=== PATIENT | male | born 1960 | race African-American/Black ===

== ENCOUNTER 2017-04-03 08:17 | Inpatient (IN) | payer MEDICARE ==
[~2017-04-03] VITALS: Ht 182.9 cm; Wt 80.7 kg
--- NOTE | 2017-04-03 08:18 | NUR ---
PT BIBA TO BED 6 AT THIS TIME.
[2017-04-03 08:24] VITALS: BP 144/98
[2017-04-03] MEDS ORDERED: MULTIVITAMIN-12 10 ML, THIAMINE 100 MG, MAGNESIUM SULFATE 50% 2,000 MG, FOLIC ACID 5 MG... IV ONE ×5 (08:25)
--- NOTE | 2017-04-03 08:25 | NUR ---
PT BIBA FOR EVALUATION OF ALOC SECONDARY TO ETOH. HX SEIZURES. PT STATES HE TAKES PHENOBARBITOL AND DILANTIN, BUT UNABLE TO GIVE DOSAGES OR DATES LAST TAKEN. SKIN IS PINK/WARM/DRY; LUNGS CLEAR BL; HR EVEN AND REGULAR; PT MINIMAL RESPONSE TO VERBAL STIMULI, RESPONSE TO PAINFUL STIMULI;NO C/O PAIN AT THIS TIME; VSS; PATIENT POSITIONED FOR COMFORT; HOB ELEVATED; BEDRAILS UP X2; BED DOWN. ER MD MADE AWARE OF PT STATUS.
[2017-04-03 08:46] LABS: BASOPHILS # (AUTO) 0.1 K/uL (0.00-0.22); BASOPHILS % (AUTO) 2.3 % (0.0-2.0); EOSINOPHILS # (AUTO) 0.1 K/uL (0-0.4); EOSINOPHILS % (AUTO) 1.5 % (0.0-4.0); HEMOGLOBIN 13.8 g/dL (12.0-18.0); LYMPHOCYTES # (AUTO) 0.8 K/uL (2.0-11.5); MEAN CORPUSCULAR HEMOGLOBIN 28 pg (27-31); MEAN CORPUSCULAR HGB CONC 33 g/dL (33-37); MEAN CORPUSCULAR VOLUME 85 fL (80-94); MONOCYTES # (AUTO) 0.7 K/uL (0.8-1.0); NEUTROPHILS # (AUTO) 2.8 K/uL (1.8-7.7); NEUTROPHILS % (AUTO) 63.2 % (42.2-75.2); PLATELET COUNT (AUTO) 183 K/uL (140-450); RED BLOOD CELL COUNT(AUTO) 4.93 MIL/uL (4.20-6.10); RED CELL DISTRIBUTION WIDTH 14.6 % (11.6-13.7); WHITE BLOOD COUNT (AUTO) 4.5 K/uL (4.8-10.8)
[2017-04-03 08:58] LABS: ALBUMIN 3.7 g/dL (3.4-5.0); ANION GAP 11.4 (8-16); ASPARTATE AMINOTRANSFERASE 55 U/L (15-37); CARBON DIOXIDE 31.1 mmol/L (21-32); CHLORIDE 103 mmol/L (98-107); CREATININE 1.3 mg/dL (0.7-1.3); GFR ARICAN-AMERICAN 74 mL/min (>90); GLUCOSE 93 mg/dL (74-106); PHENOBARBITAL 31 ug/ml (15-40); PHENYTOIN (DILANTIN) 1.5 ug/ml (10.0-20.0); POTASSIUM 3.5 mmol/L (3.5-5.1); SODIUM SERUM 142 mmol/L (136-145); TOTAL BILIRUBIN 0.3 mg/dL (0.0-1.0)
[2017-04-03 09:04] LABS: ACETAMINOPHEN < 0.5 ug/ml (10-30); SALICYLATE < 2.8 mg/dL (2.8-20.0)
[2017-04-03 09:15] LABS: UREA NITROGEN, BLOOD 15 mg/dL (7-18)
--- NOTE | 2017-04-03 09:16 | NUR ---
PT TAKEN TO CT VIA GURMARLEE BY HIGH LIFT OPERATOR
[2017-04-03] MEDS ORDERED: THIAMINE 200 MG/2 ML VIAL ONE (09:18)
[2017-04-03] MEDS ORDERED: FOLIC ACID 5 MG/ML SYR ONE (09:18)
[2017-04-03] MEDS ORDERED: MAGNESIUM SULFATE 50% 1000 MG/2 ML VIAL IV ONE (09:18)
[2017-04-03] MEDS ORDERED: PHENYTOIN 1,000 MG in NACL 0.9% 100 ML IV ONE (09:40)
--- NOTE | 2017-04-03 10:03 | NUR ---
PT RESTING COMFORTABLY AT THIS TIME, [place] [employer] AT BEDSIDE, WILL CONTINUE TO MONITOR
--- NOTE | 2017-04-03 10:08 | NUR ---
FLIGHT INFORMATION EXPEDITER GloriaMuna DALEYMAYRA WANTS TO BED CALLED [phone] WHEN PATIENT IS DISCHARED. HE WILL BE PICKING UP PATIENT. DR. SHANIA GAMEZ AND LLOYD BOLTON AWARE.
[2017-04-03 10:56] LABS: BARBITURATE, URINE POS. ng/ml (NEG <=200); BENZODIAZEPINE, URINE NEG. ng/mL (NEG <=200); CANNABINOID, URINE NEG. ng/mL (NEG <=50); COCAINE, URINE POS. ng/mL (NEG <=300); OPIATE, URINE NEG. ng/mL (NEG <=2000); PHENCYCLIDINE SCREEN,URINE NEG. ng/mL (NEG <=25)
[2017-04-03] MEDS ORDERED: NACL 0.9% 1,000 ML IV SCH (11:18)
[2017-04-03] MEDS ORDERED: ONDANSETRON 4 MG/2 ML VIAL IM/IVP PRN (11:20)
[2017-04-03] MEDS ORDERED: HYDROcodone/APAP 7.5/325 MG 1 TAB PO PRN (11:20)
[2017-04-03] MEDS ORDERED: MORPHINE SULFATE 2 MG/ML SYR IVP PRN (11:20)
[2017-04-03] MEDS ORDERED: DOCUSATE SODIUM 100 MG GELCAP PO PRN (11:20)
[2017-04-03] MEDS ORDERED: ACETAMINOPHEN 325 MG TAB PO PRN (11:20)
[2017-04-03] MEDS ORDERED: LORazepam 1 MG TAB PO PRN (11:40)
[2017-04-03] MEDS ORDERED: LORazepam 2 MG/ML VIAL IVP PRN (11:40)
[2017-04-03] MEDS ORDERED: PHENobarbital 30 MG TAB PO SCH (11:45)
--- NOTE | 2017-04-03 12:00 | NUR ---
Patient will be admitted to care of DR FABIAN. Admited to ICU. Will go to room ICU2. Belongings list completed. Report to CHE GOMEZ.
[2017-04-03 12:15] LABS: ANION GAP 11.8 (8-16); CARBON DIOXIDE 30.8 mmol/L (21-32); CREATININE 1.1 mg/dL (0.7-1.3); POTASSIUM 3.6 mmol/L (3.5-5.1)
[2017-04-03 12:28] LABS: CHOL/HDL RATIO 2.9 (1-4.5); FREE T4 (FREE THYROXINE) 0.73 ng/dL (0.76-1.46); MAGNESIUM 2.2 mg/dL (1.8-2.4); PHOSPHORUS 3.5 mg/dL (2.5-4.9); THYROID STIMULATING HORMONE 0.9 uIU/mL (0.34-3.74)
--- NOTE | 2017-04-03 12:29 | NUR ---
ADMITTED FROM ER TELE CONVENIENCE THIS 57 YR. OLD MALE PER [facility] ACCPD BY ER NURSES DUE TO ALOC. UNABLE TO OBTAIN INFO FROM PT. IV BANANA BAG INFUSING AT 250 ML/HR VIA LEFT AC PERIPHERAL IV SITE G 20. SITE CLEAR. 02 AT 2 L/MIN/NC. MAINTENANCE ASSISTANT SHOWS SB HR 50 - 55/ MIN. WOKE UP BRIEFLY, ANSWERED SIMPLE QUESTIONS, OBEYED SIMPLE COMMANDS WHEN TRANSFERRED FROM [facility] TO BED. C/O OF FEELING COLD. BLANKETS APPLIED. WANTED TO VOID. URINAL PLACED BUT UNABLE TO VOID AT THIS TIME. NO BLADDER DISTENTION NOTED. ( STRAIGHT CATH INSERTED IN ER). SKIN DRY AND INTACT.
[2017-04-03 12:30] VITALS: BP 142/94
[2017-04-03 12:53] LABS: APPEARANCE,URINE CLEAR (CLEAR); BILIRUBIN,URINE NEGATIVE (NEGATIVE); BLOOD, URINE 2+ (NEGATIVE); COLOR,URINE YELLOW (YELLOW); LEUKOCYTE ESTERASE ,URINE NEGATIVE (NEGATIVE); NITRITE, URINE NEGATIVE (NEGATIVE); PH,URINE 6.5 (5.0-9.0); UGLUCOSE NEGATIVE (NEGATIVE)
[2017-04-03] MEDS: PHENobarbital 30 MG TAB PO SCH ×2 (13:00→17:17)
[2017-04-03] MEDS: LORazepam 1 MG TAB PO SCH ×2 (13:00→21:00)
--- NOTE | 2017-04-03 13:00 | NUR ---
PO MEDS NOT GIVEN. PT. IS LETHARGIC.
[2017-04-03 13:14] LABS: RBC,URINE 20-30 /HPF (0-5); WBC,URINE NONE SEEN /HPF (0-5)
--- NOTE | 2017-04-03 13:53 | NUR ---
BANANA BAG FINISHED. 0.9NS AT 60 ML/HR STARTED.
--- NOTE | 2017-04-03 14:00 | NUR ---
REMAINS IN SINUS BRADYCARDIA HR 46 TO 55/MIN. BP STABLE PT. SLEEPING. DR. LAY AWARE.
--- NOTE | 2017-04-03 14:05 | NUR ---
DR. LAY ALSO NOTIFIED PO MEDS NOT STARTED YET. PT. LETHARGIC
--- NOTE | 2017-04-03 14:20 | NUR ---
ECHOCARDIOGRAM DONE AT BEDSIDE.
[2017-04-03] MEDS: FOLIC ACID 1 MG TAB PO SCH (14:37)
[2017-04-03] MEDS: THIAMINE 100 MG TAB PO SCH (14:39)
--- NOTE | 2017-04-03 15:20 | NUR ---
ADMINISTERED PO MEDS. PT HAD NO DIFFICULTY SWALLOWING PILLS.
--- NOTE | 2017-04-03 15:30 | NUR ---
AWAKE,ALERT, ORIENTED. DE [place] WELL. ANSWERS QUESTIONS APPROPRIATELY. SPEECH CLEAR. USED THE URINAL VOIDED 650 ML MERT URINE WITHOUT DIFF.
[2017-04-03 16:00] VITALS: BP 142/87
[2017-04-03] MEDS: PHENYTOIN 100 MG CAPER PO SCH (17:18)
--- NOTE | 2017-04-03 18:23 | NUR ---
NO SEIZURE ACTIVITY THROUGHOUT THE SHIFT.
--- NOTE | 2017-04-03 18:40 | NUR ---
LEFT AC IV SITE SWOLLEN. DC'D ATTEMPTED TO START IV X 6 TIMES. UNABLE TO SUCCESSFULLY START IV VEIN INTEGRITY IS COMPROMISED UPON FLUSHING.
--- NOTE | 2017-04-03 18:55 | NUR ---
DR. GALAN AT BEDSIDE. NOTIFIED OF DIFF. IN STARTING IV. ATTEMPTED TO START IV ON LOWER EXT. X 3. UNSUCCESSFUL.
--- NOTE | 2017-04-03 19:30 | NUR ---
DR. GALAN NOTIFIED OF FAILED IV STARTS. WILL DC IV ORDER.
--- NOTE | 2017-04-03 19:49 | NUR ---
REPORT GIVEN TO SHEFALI BOLTON.
--- NOTE | 2017-04-03 19:49 | NUR ---
REPORT RECEIVED FROM DAY NURSE CARLOS - RN WITH RESUME CARE, PT'S ASLEEP.MO SEIZURE NOTED
[2017-04-03 20:00] VITALS: BP 101/59
--- NOTE | 2017-04-03 20:00 | NUR ---
PT'S ASLEEP, NO SEIZURE NOTED
--- NOTE | 2017-04-03 22:00 | NUR ---
PT'S ASLEEP. NO SEIZURE NOTED.
[2017-04-04] VITALS (7 sets, daily range): BP systolic 109–132; BP diastolic 63–87
--- NOTE | 2017-04-04 | NUR ---
PT'S ASLEEP. NO SEIZURE NOTED.
[2017-04-04] MEDS: PHENYTOIN 100 MG CAPER PO SCH ×5 (00:28→23:54)
--- NOTE | 2017-04-04 02:00 | NUR ---
NO SEIZURE , NO PAIN , NO STRESS . ASLEEP WELL.
--- NOTE | 2017-04-04 04:00 | NUR ---
PT'S ASLEEP, VOIDED USED URINAL WITH TOLERATING WELL
[2017-04-04 04:58] LABS: HEMATOCRIT 42.7 % (36-52); MEAN CORPUSCULAR HEMOGLOBIN 28 pg (27-31); MEAN CORPUSCULAR HGB CONC 33 g/dL (33-37); MEAN CORPUSCULAR VOLUME 85 fL (80-94); PLATELET COUNT (AUTO) 149 K/uL (140-450); RED BLOOD CELL COUNT(AUTO) 5.01 MIL/uL (4.20-6.10); RED CELL DISTRIBUTION WIDTH 14.6 % (11.6-13.7); WHITE BLOOD COUNT (AUTO) 3.2 K/uL (4.8-10.8)
[2017-04-04] MEDS: LORazepam 1 MG TAB PO SCH ×3 (05:00→20:56)
[2017-04-04 05:12] LABS: ANION GAP 10.6 (8-16); CARBON DIOXIDE 28.3 mmol/L (21-32); POTASSIUM 3.9 mmol/L (3.5-5.1)
[2017-04-04 05:17] LABS: MAGNESIUM 1.9 mg/dL (1.8-2.4); PHOSPHORUS 3.3 mg/dL (2.5-4.9)
--- NOTE | 2017-04-04 06:00 | NUR ---
PT'S ASLEEP. DUE MEDICATION GIVEN MD ORDER.
[2017-04-04 06:01] LABS: PHENYTOIN (DILANTIN) 8.3 ug/ml (10.0-20.0)
--- NOTE | 2017-04-04 06:50 | NUR ---
REPORT CALLED TO LACY - CHE WITH RESUME CARE. PT'S AAO X 4 WITH WELL RESPOND .
--- NOTE | 2017-04-04 07:00 | NUR ---
RECEIVED REPORT, PATIENT TO BE TRANSFERRED TO UNIT, WILL ENDORSE TO GUERA MARQUEZ
--- NOTE | 2017-04-04 07:05 | NUR ---
RECEIVED REPORT FROM CHE HOUSE. PT IS RESTING IN BED, A/OX4, AMBULATORY, SKIN IS INTACT, PT HAS NO IV ACCESS, PER. LACY, SHE WAS TOLD BY ICU NURSE DURING REPORT THAT DR. GALAN IS AWARE AND WILL DC IV ORDER. PT HAS NO S/S OF RESPIRATORY DISTRESS OR DISCOMFORT NOTED, DISCUSSED PLAN OF CARE WITH PT, PT VERBALIZED UNDERSTANDING, SAFETY/FALL/SEIZURE PRECAUTIONS ARE IN PLACE, CALL LIGHT IS WITHIN REACH, WILL CONTINUE TO MONITOR.
[2017-04-04 07:27] LABS: EOSINOPHILS % (MANUAL) 3 % (0-4); LYMPHOCYTES % (MANUAL) 24 % (20-46); MONOCYTES % (MANUAL) 9 % (5-12)
--- NOTE | 2017-04-04 08:37 | NUR ---
PATIENT HAS BEEN SCREENED AND CATEGORIZED MODERATE NUTRITION RISK. PATIENT WILL BE SEEN WITHIN 3-5 DAYS OF ADMISSION. 04/05/17-04/07/[address]
[2017-04-04] MEDS ORDERED: PHENYTOIN 100 MG CAPER PO SCH (09:00)
[2017-04-04] MEDS: FOLIC ACID 1 MG TAB PO SCH (09:05)
[2017-04-04] MEDS: THIAMINE 100 MG TAB PO SCH (09:05)
[2017-04-04] MEDS: PHENobarbital 30 MG TAB PO SCH ×3 (09:05→17:15)
--- NOTE | 2017-04-04 09:05 | NUR ---
DUE MEDICATIONS GIVEN, PT TOLERATED WELL, CALL LIGHT WITHIN REACH, WILL CONTINUE TO MONITOR.
[2017-04-04] MEDS: ATORVASTATIN 20 MG TAB PO SCH (09:06)
--- NOTE | 2017-04-04 11:12 | NUR ---
PATIENT SLEEPING IN BED AT THIS TIME, CALL LIGHT IS WITHIN REACH.
[2017-04-04 11:16] LABS: T4 (THYROXINE) 4.2 ug/dL (4.5 - 12.0)
[2017-04-04 11:20] LABS: TRANSFERRIN 190 mg/dL (200 - 370)
--- NOTE | 2017-04-04 11:29 | NUR ---
CM NOTE INITIAL REVIEW FAXED TO [facility] (FAX# [phone], C: [phone], OPT. 1, 3, 7) AND [facility]LY [facility], [facility]–1983 (FAX# [phone], C: [phone], OPT. 2)
--- NOTE | 2017-04-04 13:15 | NUR ---
PATIENT IS SLEEPING IN BED, NO S/S OF RESPIRATORY DISTRESS OR DISCOMFORT NOTED, CALL LIGHT WITHIN REACH.
--- NOTE | 2017-04-04 15:30 | NUR ---
PATIENT IS SLEEPING IN BED, CALL LIGHT WITHIN REACH.
--- NOTE | 2017-04-04 15:53 | NUR ---
CITY LIBRARY DIRECTOR IS AT PATIENT'S BEDSIDE AT THIS TIME.
--- NOTE | 2017-04-04 17:14 | NUR ---
PATIENT SLEEPING IN BED AT THIS TIME, CALL LIGHT WITHIN REACH.
--- NOTE | 2017-04-04 19:08 | NUR ---
ENDORSED PT TO CROOK OPERATOR NURSE FOR CONTINUITY OF CARE, PT STABLE AT THIS TIME.
--- NOTE | 2017-04-04 19:09 | NUR ---
RECEIVED REPORT FROM AM NURSE. PT IS RESTING IN BED, AOX4. PT HAS NO IV ACCESS PER AM NURSE AND WITH DR. GALAN'S ORDERS OF NO NEED FOR IV ACCESS. HAS NO S/S OF DISTRESS OR DISCOMFORT NOTED. WILL CONTINUE TO MONITOR. ALL NEEDS ATTENDED. CALL LIGHT WITHIN REACH. SAFETY/SEIZURE CHECKS IN PLACE.
--- NOTE | 2017-04-04 20:56 | NUR ---
DUE MEDS GIVEN, TOLERATED WELL BY THE PATIENT. WILL CONTINUE TO MONITOR FOR ANY CHANGES.
--- NOTE | 2017-04-04 23:54 | NUR ---
VITALS STABLE, NO S/S OF DISTRESS. NO COMPLAINTS OF PAIN. DUE MEDS GIVEN, WELL TOLERATED BY PATIENT. WILL CONTINUE TO MONITOR. ALL NEEDS ATTENDED. CALL LIGHT WITHIN REACH. SAFETY CHECKS IN PLACE.
[2017-04-05] VITALS: BP 109/69
--- NOTE | 2017-04-05 02:15 | NUR ---
MADE ROUNDS, PATIENT ASLEEP. NO S/S OF DISTRESS. WILL CONTINUE TO MONITOR.
[2017-04-05 04:00] VITALS: BP 125/85
--- NOTE | 2017-04-05 04:00 | NUR ---
VITAL SIGNS STABLE. NO S/S OF DISTRESS. NO COMPLAINTS OF PAIN. WILL CONTINUE TO MONITOR.
[2017-04-05] MEDS: LORazepam 1 MG TAB PO SCH ×2 (05:09→12:00)
[2017-04-05] MEDS: PHENYTOIN 100 MG CAPER PO SCH ×2 (05:09→11:59)
--- NOTE | 2017-04-05 05:10 | NUR ---
DUE MEDS GIVEN, WELL TOLERATED BY PATIENT. WILL CONTINUE TO MONITOR.
[2017-04-05 06:41] LABS: MEAN CORPUSCULAR HEMOGLOBIN 28 pg (27-31); MEAN CORPUSCULAR HGB CONC 33 g/dL (33-37); MEAN CORPUSCULAR VOLUME 85 fL (80-94); PLATELET COUNT (AUTO) 172 K/uL (140-450); RED BLOOD CELL COUNT(AUTO) 5.43 MIL/uL (4.20-6.10); RED CELL DISTRIBUTION WIDTH 14.8 % (11.6-13.7); WHITE BLOOD COUNT (AUTO) 2.6 K/uL (4.8-10.8)
[2017-04-05 06:48] LABS: ANION GAP 9.4 (8-16); CARBON DIOXIDE 30.5 mmol/L (21-32); CREATININE 1.2 mg/dL (0.7-1.3); POTASSIUM 3.9 mmol/L (3.5-5.1)
[2017-04-05 06:52] LABS: MAGNESIUM 1.9 mg/dL (1.8-2.4); PHOSPHORUS 2.9 mg/dL (2.5-4.9)
[2017-04-05 07:06] LABS: PHENYTOIN (DILANTIN) 8.1 ug/ml (10.0-20.0)
--- NOTE | 2017-04-05 07:10 | NUR ---
ENDORSED TO AM SHIFT NURSE FOR CONTINUITY OF CARE, IN STABLE CONDITION
--- NOTE | 2017-04-05 07:15 | NUR ---
RECEIVED REPORT FROM POLICY ADVISER NURSE AT PT BEDSIDE. PT IS AAOX4, ON ROOM AIR, SKIN INTACT, NO IV ACCESS. SEIZURE PRECAUTIONS IN PLACE. 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 DISCUSSED PLAN OF CARE WITH PT, PT VERBALIZED UNDERSTANDING. PT IS STABLE, WITHOUT SIGNS OF DISTRESS. BED IN LOW POSITION, CALL LIGHT WITHIN REACH. WILL CONTINUE TO MONITOR.
[2017-04-05 07:37] VITALS: BP 126/82
[2017-04-05 07:59] LABS: EOSINOPHILS % (MANUAL) 1 % (0-4); LYMPHOCYTES % (MANUAL) 18 % (20-46); MONOCYTES % (MANUAL) 13 % (5-12)
[2017-04-05] MEDS: ATORVASTATIN 20 MG TAB PO SCH (08:32)
[2017-04-05] MEDS: FOLIC ACID 1 MG TAB PO SCH (08:33)
[2017-04-05] MEDS: THIAMINE 100 MG TAB PO SCH (08:33)
[2017-04-05] MEDS: PHENobarbital 30 MG TAB PO SCH ×2 (08:33→11:59)
--- NOTE | 2017-04-05 08:40 | NUR ---
ADMINISTERED SCHEDULED MEDICATIONS. PT TOLERATED WELL. PT STABLE, NO SIGNS OF DISTRESS NOTED. BED IN LOW POSITION, CALL LIGHT WITHIN REACH. WILL CONTINUE TO MONITOR.
[2017-04-05] MEDS ORDERED: PHEN-1438 PO (10:24)
[2017-04-05] MEDS ORDERED: PHEN100C4 PO (10:24)
[2017-04-05] MEDS ORDERED: predniSONE 10 MG TAB PO SCH (11:20)
[2017-04-05 11:33] LABS: FERRITIN 60 ng/mL (30-400); FOLIC ACID > 20.00 ng/mL (>3.0)
--- NOTE | 2017-04-05 12:00 | NUR ---
PT DISCHARGED TO HUMAN RESOURCES TRAINEE Yuni CASTAÑEDA. PT AAOX4 AND SIGNED ALL PAPERWORK. HOMELESS RESOURCES GIVEN. ANSWERED ALL OF PATIENT'S QUESTIONS AND EXPLAINED ALL DISCHARGE INSTRUCTIONS. PT AND HUMAN RESOURCES TRAINEE TOOK ALL BELONGINGS AND PRESCRIPTIONS. PT HAD NO IV ACCESS, WRISTBANDS AND DAIRY TRUCK DRIVER REMOVED. PT LEFT UNIT IN WHEELCHAIR. PT IN STABLE CONDITION.
== END 2017-04-05 12:00 | DRG 816 ==
LOC: MED 08:17 → MIC 11:33 → MTU 04-04 07:10
PROVIDERS: ADMIT Family Medicine; ATTEND Family Medicine
DX: T40.5X1A Poisoning by cocaine, accidental (unintentional), initial encounter (principal); N17.0 Acute kidney failure with tubular necrosis; G92 Toxic encephalopathy; E44.0 Moderate protein-calorie malnutrition; F15.10 Other stimulant abuse, uncomplicated; F14.10 Cocaine abuse, uncomplicated; E78.5 Hyperlipidemia, unspecified; I16.0 Hypertensive urgency; G40.909 Epilepsy, unspecified, not intractable, without status epilepticus; D72.819 Decreased white blood cell count, unspecified; F17.200 Nicotine dependence, unspecified, uncomplicated; N40.0 Benign prostatic hyperplasia without lower urinary tract symptoms; R31.9 Hematuria, unspecified; Z59.0 Homelessness; Z68.24 Body mass index [BMI] 24.0-24.9, adult
CPT/HCPCS: 36415; 70450; 71010; 72125; 76770; 80048; 80053; 80184; 80185; 80305; 81001; 82040; 82607; 82728; 82746; 82948; 82977; 83036; 83540; 83735; 83880; 84100; 84436; 84439; 84443; 84479; 85025; 85045; 85610; 85730; 87081; 93005; 93880; 96365; 99285; A9153; C1758; G0480; G0482; J1165; J3411; J3475; J3490; J7030; J7512; Q0092